=== PATIENT | male | born 1960 | race Caucasian/White ===

== ENCOUNTER 2016-11-15 08:20 | Day surgery (SDC) | payer OTHER | END 2016-11-15 14:20 | disposition short-term general hospital (02) | LOC: SURGOP 08:20 → INF/INJ 08:20 → CLPAIN 08:20 → EDSTATUS 09:38 → SURGOP 14:20 | PROC: 3E0R33Z Introduction of Anti-inflammatory into Spinal Canal, Percutaneous Approach (ICD-10-PCS; principal; 2016-11-15) | PROC: 3E0R3BZ Introduction of Anesthetic Agent into Spinal Canal, Percutaneous Approach (ICD-10-PCS; 2016-11-15) | DX: M54.16 Radiculopathy, lumbar region (principal); I10 Essential (primary) hypertension; M19.90 Unspecified osteoarthritis, unspecified site; F17.210 Nicotine dependence, cigarettes, uncomplicated; Z90.89 Acquired absence of other organs; Z98.890 Other specified postprocedural states | CPT/HCPCS: J1040; Q9967 ==